=== PATIENT | female | born 1950 | race Caucasian/White ===

== ENCOUNTER → 2017-04-26 | Outpatient (CLI) | payer OTHER ==
[~2017-04-26] MED LIST: ACE500 PO; ACET-1966 PO; ACYC-50 PO; ACYC800T99 PO; AZIT-1 PO; CIPR-345 PO; CITA-156 PO; DIPH0.5D12 IM; FLU45SYR17 IM; FLU45SYR25 IM ONLY; FLU60SYR30 IM ONLY; GOLYTE PO; GUAI480S48 PO; HYDR-4309 PO; IBU800 PO; IBUP100T51 PO; LOR5 PO; METH4TAB66 PO; NITR-105 PO; SULF-198 PO; VARI50KI IM; ZOST19404 SQ; [UNRECOGNIZED DRUG - CODE] TD; [UNRECOGNIZED DRUG - OTHER] PO
--- NOTE | 2017-04-27 08:26 | RADIOLOGY IMAGING REPORT ---
FACILITY: [facility] [place] PATIENT NAME: DEVIN SALINAS : [id number] MR: [id number] V: [id number] EXAM DATE: ORDERING PHYSICIAN: ELKIN GIL TECHNOLOGIST: Libby Solitario PROCEDURE:BILATERAL DIGITAL SCREENING MAMMOGRAM WITH CAD ASSISTED INTERPRETATION AND 3D BREAST TOMOSYNTHESIS. COMPARISON:Prior mammograms dated 04/14/15. INDICATIONS:SCREENING FINDINGS: There is no evidence of malignant appearing mass, malignant appearing calcification or other secondary sign of malignancy in either breast. DIAGNOSTIC CATEGORY 1--NEGATIVE. RECOMMENDATIONS: ROUTINE MAMMOGRAM AND CLINICAL EVALUATION. IMPRESSION: Bi-RADS 1: No significant abnormality is seen. Images were reviewed with R2CAD and 3D breast tomosynthesis. Dictated by: Isabell Miguel M.D. on 04/26/2017 at 9:58 Transcribed by: ALICE on 04/26/2017 at 13:19 Approved by: Isabell Miguel M.D. on 04/27/2017 at 8:24 [facility]
== END ==
LOC: MAMO 00:57
PROVIDERS: ATTEND Nurse Practitioner Family
DX: Z12.31 Encounter for screening mammogram for malignant neoplasm of breast (principal)
CPT/HCPCS: 77063; 77067